=== PATIENT | male | born 1965 | race Two or more races ===

== ENCOUNTER 2020-06-18 08:42 | Emergency (ER) | payer OTHER ==
[~2020-06-18] VITALS: Ht 182.9 cm; Wt 99.3 kg
[2020-06-18 08:45] VITALS: Ht 182.9 cm; Wt 99.3 kg
[2020-06-18 10:36] VITALS: BP 125/69
== END 2020-06-18 10:36 | disposition home or self-care (01) ==
LOC: ED 08:42
DX: M75.32 Calcific tendinitis of left shoulder (principal); I10 Essential (primary) hypertension; E11.9 Type 2 diabetes mellitus without complications; E78.00 Pure hypercholesterolemia, unspecified; Z88.6 Allergy status to analgesic agent
CPT/HCPCS: 82962